=== PATIENT | male | born 1980 | race Caucasian/White ===

== ENCOUNTER 2023-03-09 12:22 | Outpatient (REF) | payer OTHER, SELFPAY ==
[2023-03-09 13:19] LABS: Basophils Percent Auto 0.6 % (0.0-3.0); Eosinophils Percent Auto 3.4 % (0.0-7.0); Hematocrit 46.6 % (37.0-53.0); Mean Corpuscular HGB Conc 34 gm/dL (32-36); Mean Corpuscular Hemoglobin 31 pg (26-34); Mean Corpuscular Volume 90 fL (80-100); Monocytes Percent Auto 8.8 % (0.0-11.0); Neutrophils Percent Auto 50.2 % (42.0-72.0); Platelet Count* 215 K/uL (140-440); RDW Coefficient of Variation % 11.4 % (11.5-15.5); Red Blood Count 5.16 m/uL (4.30-5.90); White Blood Count* 3.51 K/uL (4.50-11.00)
[2023-03-09 13:23] LABS: Slide Review Reflex No
[2023-03-09 13:49] LABS: Albumin* 4.8 g/dL (3.3-5.0); Chloride* 103 mmol/L (96-114)
[2023-03-09 13:50] LABS: Potassium* 4.9 mmol/L (3.6-5.1); Sodium* 139 mmol/L (135-149)
[2023-03-09 13:52] LABS: Anion Gap 7 mEq/L (7-15); Carbon Dioxide* 29 mmol/L (20-32); Cholesterol* 186 mg/dL (90-199); Creatinine* 0.7 mg/dL (0.5-1.5); Estimated Glomerular Filt Rate 118 ml/min; Total Protein* 8.2 g/dL (6.0-8.3)
[2023-03-09 13:53] LABS: Alanine Aminotransferase* 37 U/L (4-50); Alkaline Phosphatase* 48 U/L (40-150); Aspartate Amino Transferase* 29 U/L (12-35); Bilirubin Total* 0.5 mg/dL (0.1-1.5); Blood Urea Nitrogen* 16 mg/dL (5-24); Calcium* 10.1 mg/dL (8.4-10.6); Glucose* 93 mg/dL (60-115); HDL Cholesterol* 39 mg/dL (>=40); LDL Cholesterol Calculated 115 mg/dL (<100); Triglycerides* 158 mg/dL (40-149)
[2023-03-09 14:21] LABS: PSA Screen* 3.55 ng/mL (0.10-4.00)
[2023-03-10 23:16] LABS: Luteinizing Hormone, Serum 6.6 IU/L (1.7-8.6); Sex Hormone Binding Globulin 26 nmol/L (17-56); Testosterone, Adult Male 343 ng/dL (300-890); Testosterone, Free Calculation 70 pg/mL (47-244); Testosterone, Percentage Free 2.1 % (1.6-2.9)
[2023-03-11 00:15] LABS: DHEAS 196 ug/dL (89-427)
== END 2023-03-09 12:23 | disposition home or self-care (01) ==
LOC: NPINS 12:22
PROVIDERS: PCP Family Medicine; Visit Provider General Practice
DX: Z00.00 Encounter for general adult medical examination without abnormal findings (principal); E29.1 Testicular hypofunction
CPT/HCPCS: 80053; 80061; 82627; 82670; 83002; 84153; 84270; 84305; 84402; 84403; 84443; 85025

== ENCOUNTER 2024-04-19 08:04 | Outpatient (CLI) | payer OTHER, SELFPAY ==
--- NOTE | 2024-04-19 08:15 | MR_ITS ---
[facility] [address] [facility] [address] Phone:?[phone] Fax:?[phone] Referring Physician Information: Dennis Goncalves M.D. [id number] [address] Phone:?[phone] Fax:?[phone] Patient:Radha Smith Lori.Willy.B:?1980 Sex:?Male Phone:?[phone] [facility] MRN:?[id number] Exam Date:?04/19/2024 EXAM: MRI of the RIGHT KNEE, without contrast CLINICAL INFORMATION: Male, 43 years old, with right knee pain. INDICATION: Evaluate for meniscal tear. PRIOR SURGERY: None reported. PLAIN FILMS: None available. COMPARISONS: No prior MRIs available. TECHNICAL INFORMATION: Using a 1.5T MR scanner and a localizing surface coil: sagittals: PD, PDFS coronals: PD, T2FS axials: PD, PDFS SEDATION: None CONTRAST: None FINDINGS: Knee joint: Effusion: Mild-moderate right knee effusion. Popliteal cyst: Small, unruptured popliteal (Mendez's) cyst. Loose bodies: None. Subcutaneous and extra-articular soft tissues: Unremarkable. Ligaments: ACL: Intact ACL anteromedial and posterolateral bundles, without sprain or tear. PCL: Intact PCL, without acute or chronic injury. MCL: Mild thickening of the proximal 3rd of the superficial MCL with mild- moderate periligamentous edema (coronal STIR series 8 images 8 images 18-20). LCL: Intact LCL, without injury. Posterolateral corner: No posterolateral corner soft tissue injury. Popliteus, biceps femoris, iliotibial band, popliteofibular ligament and lateral gastrocnemius are intact. Posteromedial corner: Mild-moderate semimembranosus tendinopathy, without tear (axial T2FS series 4 images 20-25). Pes anserine tendons and posterior oblique ligament are without injury, tendinopathy or bursitis. Extensor mechanism: Patellar tendon: Mild proximal patellar tendinopathy, without tear. Quadriceps tendon: Intact, without tendinopathy. Retinacula: Medial and lateral retinacula are intact. Fat pads: Mild edema-like signal is present throughout the knee fat pads Medial compartment: Medial meniscus: Apical free edge and undersurface tearing of the posterior horn and body measures 2.6 cm (sagittal PDFS series 6 images 20-25 and coronal STIR series 8 images 19-22). Meniscal extrusion measures 4 mm. A 7 x 2 x 4 mm flap fragment is present at the posterior horn/root junction (sagittal PDFS series 6 image 20 and coronal image 21). Medial femoral condyle & tibial plateau: Broad-based mild grade II chondromalacia throughout the central, weightbearing aspect of the medial compartment, with minimal marginal osteophytosis. Lateral compartment: Lateral meniscus: No articular surface, meniscosynovial junction or root tear. No displacement, extrusion or parameniscal cyst. Lateral femoral condyle: No chondromalacia or osteochondral abnormality. Lateral tibial plateau: No chondromalacia or osteochondral abnormality. Patellofemoral joint: Patella: Focal partial-thickness chondral fissuring of the medial patellar facet (axial T2FS series 4 image 12). Trochlea: No chondromalacia or osteochondral abnormality. Proximal tibiofibular joint: Unremarkable, without evidence of ligament sprain injury, joint effusion or adjacent marrow edema. Bones: No stress/occult fractures or other marrow edema/pathology. IMPRESSION: 1. Apical free edge and undersurface tearing of the posterior horn and body of the medial meniscus measuring 2.6 cm, 4 mm of meniscal extrusion and a 4 x 7 x 2 mm flap fragment at the posterior horn/root junction. 2. Mild-moderate semimembranosus and mild patellar tendinopathy, without tear. 3. 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 4. Mild-moderate knee joint effusion with a small, unruptured popliteal (Mendez's) cyst. 5. Focal partial-thickness chondral fissuring of the medial patellar facet 6. No lateral meniscal tear or osteochondral abnormality of the lateral compartment. BC Electronically signed on 04/21/2024 3:41:00 PM by Pawel Peterson M.D.
== END 2024-04-19 08:05 | disposition home or self-care (01) ==
LOC: MRI 08:05
PROVIDERS: PCP Family Medicine; Visit Provider Orthopaedic Surgery
DX: M25.561 Pain in right knee (principal); S83.241A Other tear of medial meniscus, current injury, right knee, initial encounter; M94.261 Chondromalacia, right knee; M25.461 Effusion, right knee; M71.21 Synovial cyst of popliteal space [Baker], right knee
CPT/HCPCS: 73721

== ENCOUNTER 2024-05-17 12:53 | Outpatient (CLI) | payer OTHER, SELFPAY | END 2024-05-17 12:54 | disposition home or self-care (01) | PROVIDERS: PCP Family Medicine; Visit Provider Family Medicine | DX: Z01.818 Encounter for other preprocedural examination (principal) | CPT/HCPCS: 80048; 85025 ==

== ENCOUNTER 2024-06-02 08:14 | Day surgery (SDC) | payer OTHER, SELFPAY ==
[2024-06-02] VITALS (12 sets, daily range): BP systolic 91–119; BP diastolic 53–83; PULSE 55–74; RESP 12–16; TEMP 36.3–36.8; O2SAT 94–98; BMI 25.2
[2024-06-02] MEDS: SODIUM CHLORIDE 0.9 % (FLUSH) 10 ML SYRINGE IVF (08:38)
[2024-06-02] MEDS: 0.9 % SODIUM CHLORIDE 500 ML 500 ML 100 ML IV (08:38)
--- NOTE | 2024-06-02 08:46 | W.PM.H&PU ---
History & Physical Update History & Physical Update H&P Reviewed and patient assessed: No changes noted
--- NOTE | 2024-06-02 08:47 | P.ORPRC_ITS ---
Procedure Note Date of procedure: 06/02/24 Procedure: PREOPERATIVE DIAGNOSIS: 1. Right knee medial meniscus tear 2. Right knee chondromalacia POSTOPERATIVE DIAGNOSIS: 1. Right knee medial meniscus tear 2. Right knee chondromalacia 3. Right knee medial plica PROCEDURE: 1. Right knee arthroscopic partial medial meniscectomy 2. Right knee arthroscopic chondroplasty medial femoral condyle and trochlea 3. Right knee arthroscopic plica excision SURGEON: To Goncalves M.D. PACKING AND STAMPING MACHINE OPERATOR: Janina Bell P.A.-C.. an oceanographer assistant was critical for this case to aid in patient positioning, knee manipulation, instrument exchange, and closure. ANESTHESIA: Spinal EBL: 0 mL TOURNIQUET: 23 minutes at 250 mmHg COMPLICATIONS: None INDICATIONS: 44-year-old male with history of right medial-sided knee pain that was not improving with conservative management. MRI revealed complex tear of the posterior horn of the medial meniscus as well as chondromalacia of the medial compartment. And medically, patient was offered arthroscopic partial medial meniscectomy. Prior to surgery risks and benefits of procedure were discussed with patient all questions were answered informed consent was obtained. FINDINGS: Arthroscopic examination revealed complex degenerative tearing of the posterior horn and body of the medial meniscus. Diffuse grade 3 chondromalacia involving the medial femoral condyle with grade 1 chondral changes of the medial tibial plateau lateral tibial plateau. Grade 3 chondromalacia of the inferior pole patella and grade 3 chondromalacia of the trochlea which measured 0.5 cm x 1.5 cm. There is also a medial plica which was impinging on the medial femoral condyle. Lateral meniscus was intact. ACL and PCL were intact. DESCRIPTION OF PROCEDURE: Patient was seen preoperatively and operative site was marked. He was then brought to the operating room where spinal anesthesia was administered right anesthesia staff. 2 g IV Ancef were administered preoperatively for prophylaxis. The right lower extremity was prepped and draped in the appropriate sterile fashion. A surgical time-out was performed confirming patient identity, surgical site, and procedure. The right lower extremity was elevated and exsanguinated with an Esmarch, and the tourniquet was inflated to 250 mmHg. Anterolateral portal was established. Anterior medial portal was established after localization with spinal needle. Diagnostic arthroscopy was performed with findings as noted above. Attention was 1st directed to the trochlear were loose cartilage was removed with the arthroscopic shaver. After removing loose cartilage, remnant cartilage was probed and confirmed to be stable. Area of chondromalacia of the trochlea measured 0.5 cm x 1.5 cm. Attention was then directed to the medial compartment. There was noted be a complex degenerative tearing involving the posterior horn and body of the medial meniscus with a meniscal flap. Partial meniscectomy was performed with various instrument including basket forceps and motorized shaver. Remnant meniscus was contoured to a smooth transition to normal meniscal tissue. Following this, the meniscus was re-probed and found to be stable. Approximately 25 % of the overall meniscus was resected, but of the portion that was worked on, approximately 50 % of the depth was resected. Attention was then directed to the medial femoral condyle, where there was diffuse grade 3 chondromalacia on the weight-bearing surface. Loose cartilage was debrided with a motorized shaver. After debridement, remnant meniscus was probed and confirmed to be stable. At this stage, the shaver was reinserted into the suprapatellar pouch and all remaining meniscal debris was evacuated. Instruments were removed, excess fluid was drained, and the tourniquet was released. Total tourniquet time was 23 minutes. Portal sites were closed with with 4-0 Monocryl and Steri-Strips, and sterile dressings were applied. Patient was then woken from anesthesia and transferred to the PACU in stable condition. PLAN: 1. Weight bear as tolerated right lower extremity. Crutches as needed. 2. Ice, elevation, acetaminophen and/or ibuprofen, for pain as needed. 3. Knee range of motion and quad sets/straight leg raise regularly 4. Follow up in orthopedic clinic in 1-2 weeks for a wound check.
--- NOTE | 2024-06-02 09:29 | W.ANESCHARGE ---
Anesthesia Charges Start Date/Time Anesthesia Start Date: 06/02/24 Anesthesia Start Time: 09:39 Stop Date/Time Anesthesia Stop Date: 06/02/24 Anesthesia Stop Time: 10:42
[2024-06-02] MEDS: CEFAZOLIN 2 GM INJ IVP (09:52)
[2024-06-02] MEDS: BUPIVACAINE 0.25% 30 ML INJECTION (10:24)
--- NOTE | 2024-06-02 10:43 | W.ANESCHARGE ---
Anesthesia Charges Start Date/Time Anesthesia Start Date: 06/02/24 Anesthesia Start Time: 09:39 Stop Date/Time Anesthesia Stop Date: 06/02/24 Anesthesia Stop Time: 10:42
--- NOTE | 2024-06-02 11:13 | SUR.PHASEI ---
patient met discharge criteria per anesthesia
== END 2024-06-02 12:17 | disposition home or self-care (01) ==
LOC: OR 08:14
PROVIDERS: PCP Family Medicine; Visit Provider Orthopaedic Surgery
PROC: (CPT 29870; principal; 2024-06-02 09:30)
DX: S83.231A Complex tear of medial meniscus, current injury, right knee, initial encounter (principal); M94.261 Chondromalacia, right knee; M67.51 Plica syndrome, right knee
CPT/HCPCS: 29881; 29875; 01400; J0665; J0690; J2250; J2405; J2704; J3010; J7030